=== PATIENT | female | born 1940 | race Caucasian/White ===

== ENCOUNTER 2016-12-02 16:50 | Inpatient (IN) | payer MEDICARE ==
[~2016-12-02] VITALS: Ht 167.6 cm; Wt 74.8 kg
[~2016-12-02 16:50] MED LIST: AMBIEN5 MG PO; AMOXICILLIN500 MG PO; DILTIAZEM HCL120 MG PO; ELIQUIS2.5 MG PO; K-DUR/KLOR-CON20 MEQ PO; LEVOTHYROXIN25 MC1 PO; NAPROSYN500 MG PO; ULTRAM50 M1 PO; ZOLPIDEM5 M1 PO
[2016-12-02] MEDS ORDERED: METO25TAB PO (17:15)
[2016-12-02] MEDS ORDERED: LOSARTAN POT50 MG PO (17:16)
[2016-12-02] MEDS ORDERED: LORTAB 7.57.5 MG PO (17:16)
[2016-12-02] MEDS ORDERED: CEPHALEXIN250 MG PO (17:17)
[2016-12-02 17:47] LABS: HEMATOCRIT 35.9 % (37.0-47.0); HEMOGLOBIN 11.6 g/dl (12.0-16.0); IMMATURE GRANULOCYTES 0.3 % (0.0-1.0); MEAN CELL VOLUME 99.7 fL CALC (80.0-100.0); MEAN CORPUSCULAR HGB 32.2 pG CALC (26.0-32.0); MEAN CORPUSCULAR HGB CONC 32.3 g/L CALC (32.0-36.0); NEUT# 7.1 thou/uL (2.00-7.15); RED BLOOD COUNT 3.6 mill/uL (4.20-5.60); RED CELL DISTRI WIDTH 15.8 % (11.5-15.5)
[2016-12-02 17:52] LABS: PROTHROMBIN TIME 11.1 SECONDS (9.0-12.5)
[2016-12-02 17:53] LABS: ALBUMIN 3.7 g/dL (3.2-5.0); ALKALINE PHOSPHATASE 106 u/l (38-126); AMYLASE 43 u/l (30-110); ANION GAP 14 (6-22 (CALC)); BILIRUBIN, TOTAL 0.6 mg/dL (0.0-1.4); BUN 13 mg/dL (8-23); BUN/CREATININE RATIO 19 (12-20 (CALC)); CALCIUM 9.2 mg/dL (8.4-10.2); CARBON DIOXIDE 28 mmol/l (22-30); CHLORIDE 101 mmol/l (95-108); CREATININE 0.7 mg/dL (0.5-1.0); GFR > 60 ML/MIN (>=60 (CALC)); GFR FOR AFR.AMER. > 60 ML/MIN (>=60 (CALC)); GLUCOSE 128 mg/dL (82-115); LIPASE 37 u/l (23-300); POTASSIUM 3.9 mmol/l (3.5-5.1); SGOT/AST 38 u/l (9-36); SGPT/ALT 34 u/l (11-66); SODIUM 139 mmol/l (137-146); TOTAL PROTEIN 7.5 g/dL (6.3-8.2)
[2016-12-02 18:05] LABS: MYOGLOBIN 40 ng/mL (0 - 62)
[2016-12-02 20:00] VITALS: BP 146/47
[2016-12-02 23:56] VITALS: BP 107/44
[2016-12-03 03:51] VITALS: BP 128/64
[2016-12-03 08:19] VITALS: BP 145/63
[2016-12-03 10:59] VITALS: BP 116/56
[2016-12-03 14:58] VITALS: BP 119/51
== END 2016-12-03 17:45 | disposition short-term general hospital (02) | DRG 300 ==
LOC: ED 16:50 → ED-I 18:06 → ED 18:06 → ED-I 18:18 → ED 18:53 → MS2 18:54
PROVIDERS: Emergency Medicine; ADMIT Internal Medicine; ATTEND Internal Medicine
DX: I82.412 Acute embolism and thrombosis of left femoral vein (principal); I48.1 Persistent atrial fibrillation; I11.9 Hypertensive heart disease without heart failure; M25.462 Effusion, left knee; G89.4 Chronic pain syndrome; M47.9 Spondylosis, unspecified; J45.909 Unspecified asthma, uncomplicated; E87.6 Hypokalemia; E03.9 Hypothyroidism, unspecified; E53.8 Deficiency of other specified B group vitamins; G47.00 Insomnia, unspecified; F32.9 Major depressive disorder, single episode, unspecified; Z91.14 Patient's other noncompliance with medication regimen; Z96.653 Presence of artificial knee joint, bilateral; Z98.84 Bariatric surgery status; Z79.899 Other long term (current) drug therapy; Z79.01 Long term (current) use of anticoagulants
CPT/HCPCS: J1650; Q9967

== ENCOUNTER 2020-01-31 16:29 | Observation (INO) | payer MEDICARE ==
[~2020-01-31] VITALS: Ht 152.4 cm; Wt 60.3 kg
[~2020-01-31 16:29] MED LIST changes: +CEPHALEXIN250 MG PO; +LOPRESSOR25 M1 PO; +LORTAB 7.57.5 MG PO; +LOSARTAN POT50 MG PO
--- NOTE | 2020-01-31 16:29 | NUR ---
PATIENT TO ROOM 10 FOR BEDSIDE TRIAGE AND PHYSICIAN AT BEDSIDE FOR EVAL
[2020-01-31 17:04] LABS: IMMATURE GRANULOCYTES 0.5 % (0.0-5.0); MEAN CORPUSCULAR HGB 20.4 pG CALC (26.0-32.0); MEAN CORPUSCULAR HGB CONC 29.2 g/dL CAL (32.0-36.0); NEUT# 5.12 thou/uL (2.00-7.15); RED BLOOD COUNT 4.01 mill/uL (4.20-5.60); RED CELL DISTRI WIDTH 21.2 % (11.5-15.5)
[2020-01-31 17:06] LABS: HEMATOCRIT 28.1 % (37.0-47.0); HEMOGLOBIN 8.2 g/dl (12.0-16.0); MEAN CELL VOLUME 70.1 fL CALC (80.0-100.0)
[2020-01-31 17:19] LABS: ALBUMIN 3.8 g/dL (3.2-5.0); ALKALINE PHOSPHATASE 84 u/l (38-126); AMYLASE 49 u/l (30-110); ANION GAP 11 (6-22 (CALC)); BILIRUBIN, TOTAL 0.6 mg/dL (0.0-1.4); BUN 21 mg/dL (8-23); BUN/CREATININE RATIO 32 (12-20 (CALC)); CARBON DIOXIDE 26 mmol/l (22-30); CHLORIDE 105 mmol/l (95-108); CREATININE 0.7 mg/dL (0.5-1.0); GFR > 60 ML/MIN (>=60 (CALC)); GFR FOR AFR.AMER. > 60 ML/MIN (>=60 (CALC)); LIPASE 41 u/l (23-300); MAGNESIUM 1.9 mg/dL (1.6-2.3); POTASSIUM 4.2 mmol/l (3.5-5.1); SGOT/AST 48 u/l (9-36); SODIUM 137 mmol/l (137-146); TOTAL PROTEIN 7.4 g/dL (6.3-8.2)
[2020-01-31 17:25] LABS: ACT PARTIAL THROMBO TIME 27.7 SECONDS (20.0-32.5); D-DIMER 0.57 mg/L (0.19-0.60); INTERNATIONAL NORMALIZED RATIO 1.1 RATIO (0.7-1.3); PROTHROMBIN TIME 11.6 SECONDS (9.0-12.5)
--- NOTE | 2020-01-31 17:30 | NUR ---
PATIENT RESTING AWAITING LAB AND RADIOLOGY RESULTS. PATIENT DENIES ANY PAIN OR DISCOMFORT AT THIS TIME
[2020-01-31 17:49] LABS: TSH, 3RD GENERATION 4.23 uIU/mL (0.47 - 4.68)
--- NOTE | 2020-01-31 18:30 | NUR ---
PATIENT RESTING AWAITNG LAB AND RADIOLOGY REAULTS. PATIENTDENIES ANY PAIN OR SOB AT THIS TIME. PATIENT DENIES ANY DIZZINESS AT THIS TIME
--- NOTE | 2020-01-31 18:59 | NUR ---
PATIENT RESTING AWAITNG ROOM ASSIGNMENT PATIENT DENIES ANY PAIN OR DISCOMFORT AT THIS TIME
--- NOTE | 2020-01-31 19:03 | NUR ---
REPORT GIVEN TO MAX TAO IN MED SURG
--- NOTE | 2020-01-31 19:27 | NUR ---
KEEP AREA CLEAN AND DRY WASH DAILY WITH SOAP AND WATER APPLY SILVADENE OINTMENT DAILY TAKE ANY PRESCRIBED MEDICATION DIRECTED PATIENT TRANSPORTED TO [facility]
[2020-01-31 19:30] VITALS: BP 142/65
--- NOTE | 2020-01-31 19:31 | NUR ---
RECEIVED REPORT FROM ED NURSE FLORINA PATIENT TRANSPORTED VIA BED, ACCOMPANIED BY DAUGHTER, PATIENT ORIENTED TO ROOM AND CALL LIGHT SYSTEM, BED ALARM IN PLACE.
--- NOTE | 2020-01-31 19:34 | NUR ---
MED RC REVIEWED BUT NOT COMPLETED. ADMITTING MD NOTIFIED AND HAD JUST SEEN PATIENT PRIOR TO ARRIVAL
--- NOTE | 2020-01-31 20:20 | NUR ---
PATIENT ALERT ORIENTED ABLE TO MAKE NEEDS KNONW, WITH SALINE LOCK ON RAC PATENT FLUSHES WELL, ADMISSION ASSESSMENT DONE, PATIENT COMFORTAMBLE RESTING IN BED CALL LIGHT AT REACH.
--- NOTE | 2020-01-31 20:53 | NUR ---
CALLED DR RUIZ ABOUT PATIENT REQUEST TO CONTINUE PAIN MEDICATION AND REQUEST FOR SLEEP AID.
[2020-01-31 23:52] LABS: URINE BILIRUBIN - DIPSTICK NEGATIVE (NEGATIVE); URINE BLOOD DIPSTICK NEGATIVE (NEGATIVE); URINE COLOR YELLOW; URINE GLUCOSE - DIPSTICK NEGATIVE (NEGATIVE); URINE KETONE TRACE mg/dL (NEGATIVE); URINE LEUK ESTERASE NEGATIVE (NEGATIVE); URINE NITRITE - DIPSTICK NEGATIVE (Negative); URINE PROTEIN - DIPSTICK NEGATIVE (NEG-TRACE); URINE SPECIFIC GRAVITY 1.025
[2020-02-01] VITALS (11 sets, daily range): BP systolic 124–165; BP diastolic 67–88
--- NOTE | 2020-02-01 00:22 | NUR ---
PATIENT RESTING IN BED EYES CLOSED, BREATHING EVEN AND UNLABORED CALL LIGHT AT REACH, BED ALARFM IN PLACE.
--- NOTE | 2020-02-01 04:44 | NUR ---
PATIENT RESTING IN BED WITH EYES CLOSED, BREATHING EVEN AND UNLABORED, NO DISCOMFORTS NOTED AT THIS TIME,CALL LIGHT AT REACH, BED ALARM IN PLACE.
--- NOTE | 2020-02-01 07:00 | NUR ---
REPORT RECEIVED FROM SHELLEY VICTORIA;PT RESTING IN SUPINE POSITION;RESPIRATIONS EVEN AND UNLABORED ON RA;PT DENIES ANY CURRENT PAIN OR NEEDS;TELE MONITORING IN PLACE;IV SITE PATENT;PT ENCOURAGED TO CALL FOR ASSISTANCE IF NEEDED;FALL PRECAUTIONS IN PLACE WITH BED IN THE LOWEST POSITION AND CALL LIGHT IN REACH;WILL CONTINUE TO MONITOR
--- NOTE | 2020-02-01 08:35 | NUR ---
PT RESTING IN SEMI FOWLERS POSITION,A&O X3;VS OBTAINED AND ASSESSMENT COMPLETED;PT DENIES ANY CURRENT PAIN BUT DOES REPORT NAUSEA, PAIN SCALE AND REPORTING EDUCATED;CELENA ANRP NOTIFIED OF NAUSEA AND NEW ORDERS RECEIVED;RESPIRATIONS EVEN AND UNLABORED ON RA,CLEAR LUNG SOUNDS;ABDOMEN SOFT ON PALPATION AND ACTIVE IN ALL4 QUADRANTS;STRONG PEDAL PULSES;SKIN INTACT;TELE MONITORING IN PLACE;#20G TO RAC FLUSHED AND PATENT,SITE APPEARS HEALTHY;PT ENCOURAGED TO CALL FOR ASSISTANCE IF NEEDED;FALL PRECAUTIONS IN PLACE WITH BED IN THE LOWEST POSITION AND CALL LIGHT IN REACH;WILL CONTINUE TO MONITOR
[2020-02-01 09:06] LABS: HEMATOCRIT 25.6 % (37.0-47.0); HEMOGLOBIN 7.5 g/dl (12.0-16.0); MEAN CELL VOLUME 69.9 fL CALC (80.0-100.0); MEAN CORPUSCULAR HGB 20.5 pG CALC (26.0-32.0); MEAN CORPUSCULAR HGB CONC 29.3 g/dL CAL (32.0-36.0); RED BLOOD COUNT 3.66 mill/uL (4.20-5.60); RED CELL DISTRI WIDTH 21.2 % (11.5-15.5)
[2020-02-01 09:47] LABS: ANION GAP 8 (6-22 (CALC)); BUN 15 mg/dL (8-23); BUN/CREATININE RATIO 30 (12-20 (CALC)); CARBON DIOXIDE 25 mmol/l (22-30); CHLORIDE 106 mmol/l (95-108); CREATININE 0.5 mg/dL (0.5-1.0); GFR > 60 ML/MIN (>=60 (CALC)); GFR FOR AFR.AMER. > 60 ML/MIN (>=60 (CALC)); POTASSIUM 4.2 mmol/l (3.5-5.1); SODIUM 135 mmol/l (137-146)
--- NOTE | 2020-02-01 10:35 | NUR ---
INFORMED CONSENT FOR PRBC'S OBTAINED AT THIS TIME BY SHELLEY REDDY. ALL RISKS AND BENEFITS DISCUSSED AND PT VERBALIZES UNDERSTANDING.
--- NOTE | 2020-02-01 11:07 | NUR ---
1ST UNIT OF PRBC'S STARTED AT THIS TIME BY BARRY AND VERIFIED BY THIS WRITTER;ALL S/S OF TRANSFUSION REACTIONS DISCUSSED WITH PT AND DAUGHTER AND PT VERBALIZES UNDERSTANDING;WILL CONTINUE TO MONITOR
--- NOTE | 2020-02-01 11:12 | NUR ---
CALLED DR. GARIBAY OFFICE REGARDING THIS PT FOR CONSULATION SPOKE TO JASSON AND STATED SHE WILL LET THE DOCTOR KNOW ABOUT THIS PT.
--- NOTE | 2020-02-01 11:22 | NUR ---
PT RESTING IN SEMI FOWLERS POSITION WITH DAUGHTER AT BEDSIDE;PT TOLERATING BLOOD TRANSFUSION WITH EASE AND DENIES ANY CURRENT PAIN OR NEEDS;RESPIRATIONS EVEN AND UNLABORED ON RA;ENCOURAGED TO CALL FOR ASSISTANCE IF NEEDED;CALL LIGHT IN REACH;WILL CONTINUE TO MONITOR
[2020-02-01] MEDS ORDERED: ELIQUIS2.5 MG PO (12:05)
[2020-02-01] MEDS ORDERED: SERTRALINE25 MG PO (12:08)
[2020-02-01] MEDS ORDERED: B121000 MCG PO (12:11)
[2020-02-01] MEDS ORDERED: D-MANNOSE500 MG PO (12:14)
[2020-02-01] MEDS ORDERED: CLARITIN10 M2 PO (12:24)
[2020-02-01] MEDS ORDERED: MAGNESIUM400 M1 PO (12:25)
[2020-02-01] MEDS ORDERED: MASTIC GUM PO (12:32)
--- NOTE | 2020-02-01 13:05 | NUR ---
PT REPORTS NAUSEA AND LOWER BACK PAIN RATING 10/10 ON THE PAIN SCALE, PT MEDICATED WITH PRN LORTAB 7.5MG PO AND ZOFRAN 4MG IVP PER ORDER;RESPIRATIONS REMAIN EVEN UNLABORED ON RA;BLOOD TRANSFUSION INFUSING TO RAC WITH EASE PER ORDER;TELE MONITORING IN PLACE;PT DENIES ANY ADDITIONAL NEEDS AT THIS TIME AND IS ENCOURAGED TO CALL FOR ASSISTANCE IF NEEDED;FALL PRECAUTIONS IN PLACE WITH CALL LIGHT IN REACH;WILL CONTINUE TO MONITOR
--- NOTE | 2020-02-01 15:06 | NUR ---
PT RESTING IN SEMI FOWLERS POSITION;RESPIRATIONS REMAIN EVEN AND UNLABORED ON RA;PT REPORTS THAT LOWER BACK PAIN HAS DECREASED SINCE PAIN MEDICATION ADMINISTRATION;IV SITE REMAINS PATENT AND BLOOD TRANSFUSION COMPLETED AT THIS TIME, PT TOLERATED WELL.TELE MONITORING IN PLACE;FRESH ICE PROVIDED PER REQUEST;PT DENIES ANY ADDITIONAL NEEDS AND IS ENCOURAGED TO CALL FOR ASSISTANCE IF NEEDED;CALL LIGHT IN REACH;WILL CONTINUE TO MONITOR
--- NOTE | 2020-02-01 15:50 | NUR ---
ORTHOSTATIC BP OBTAINED AT THIS TIME. SUPINE BP 165/78 HR 82. SITTING BP 162/75 HR 89. STANDING BP 163/91 HR 99.
--- NOTE | 2020-02-01 15:54 | NUR ---
RODRIGUEZ,ANRP AT BEDSIDE
--- NOTE | 2020-02-01 17:32 | NUR ---
PT MEDICATED WITH PRN TYLENOL 650MG PO PER REQUEST FOR LEFT FLANK PAIN RATING 7/10 ON THE PAIN SCALE,WILL CONTINUE TO MONITOR FOR EFFECTIVENESS.
--- NOTE | 2020-02-01 21:00 | NUR ---
PT RESTING IN BED, ALERT AND ORIENTED.RESPIRATIONS EVEN AND UNLABORED, LUNGS SOUND DIMINISHED. PEDAL PULSES WEAK. TELE IN PLACE. CALL LORD WITHIN REACH. WILL CONTINUE TO MONITOR.
--- NOTE | 2020-02-02 00:15 | NUR ---
PT RESTING IN BED WITH EYES CLOSED, RESPIRATIONS EVEN AND UNLABORED, NO S/S OF DISTRESS AT THIS TIME. SAFETY PRECAUTIONS IN PLACE. WILL CONTINUE TO MONITOR.
[2020-02-02 04:00] VITALS: BP 145/88
--- NOTE | 2020-02-02 04:16 | NUR ---
PT RESTING IN BED WITH EYES CLOSED, RESPIRATIONS EVEN AND UNLABORE, NO S/S OF DISTRESS AT THIS TIME. SAFETY PRECAUTIONS IN PLACE. WILL CONTINUE TO MONITOR.
--- NOTE | 2020-02-02 07:10 | NUR ---
REPORT RECEIVED FROM SHELLEY MARRERO;PT APPEARS TO BE SLEEPING IN SUPINE POSITION;NO S/S OF DISTRESS NOTED;RESPIRATIONS APPEAR EVEN AND UNLABORED ON RA;TELE MONITORING IN PLACE;ALL SAFETY PRECAUTIONS REMAIN IN PLACE WITH BED IN THE LOWEST POSITION AND CALL LIGHT IN REACH;WILL CONTINUE TO MONITOR
--- NOTE | 2020-02-02 08:25 | NUR ---
PT RESTING IN SEMI FOWLERS POSITION,A&O X3;VS OBTAINED AND ASSESSMENT COMPLETED;PT REPORTS LOWER BACK PAIN RATING 5/10 ON THE PAIN SCALE, PT MEDICATED WITH PRN LORTAB THIS MORNING AND IS RE-EDUCATED ON PAIN MEDICATION SCALE, PT VERBALIZES UNDERSTANDING;RESPIRATIONS EVEN AND UNLABORED ON RA,CLEAR LUNG SOUNDS;ABDOMEN SOFT ON PALPATION AND ACTIVE IN ALL 4 QUADRANTS;STRONG PEDAL PULSES;SKIN INTACT;TELE MONITORING IN PLACE;#20G TO RAC FLUSHED AND PATENT,SITE APPEARS HEALTHY;PT DENIES ANY ADDITIONAL NEEDS AT THIS TIME AND IS ENCOURAGED TO CALL FOR ASSISTANCE IF NEEDED;FALL PRECAUTIONS IN PLACE WITH BED IN THE LOWEST POSITION AND CALL LIGHT IN REACH;WILL CONTINUE TO MONITOR
[2020-02-02 08:27] VITALS: BP 119/75
[2020-02-02 09:11] LABS: MEAN CELL VOLUME 73.3 fL CALC (80.0-100.0); MEAN CORPUSCULAR HGB 22.1 pG CALC (26.0-32.0); MEAN CORPUSCULAR HGB CONC 30.1 g/dL CAL (32.0-36.0); RED BLOOD COUNT 4.35 mill/uL (4.20-5.60); RED CELL DISTRI WIDTH 22.7 % (11.5-15.5)
--- NOTE | 2020-02-02 09:30 | NUR ---
PT REPORTS NAUSEA AND REQUESTS PRN ANTIEMETIC, PT TO BE MEDICATED WITH PRN ZOFRAN 4MG IVP AT THIS TIME;WILL CONTINUE TO MONITOR FOR EFFECTIVENESS
[2020-02-02 09:31] LABS: HEMATOCRIT 31.9 % (37.0-47.0); HEMOGLOBIN 9.6 g/dl (12.0-16.0)
[2020-02-02 09:48] LABS: ANION GAP 7 (6-22 (CALC)); BUN 11 mg/dL (8-23); BUN/CREATININE RATIO 18 (12-20 (CALC)); CARBON DIOXIDE 28 mmol/l (22-30); CHLORIDE 104 mmol/l (95-108); CREATININE 0.6 mg/dL (0.5-1.0); GFR > 60 ML/MIN (>=60 (CALC)); GFR FOR AFR.AMER. > 60 ML/MIN (>=60 (CALC)); POTASSIUM 3.6 mmol/l (3.5-5.1); SODIUM 136 mmol/l (137-146)
--- NOTE | 2020-02-02 10:54 | NUR ---
AT BEDSIDE DISCUSSING POC WITH PT INCLUDING POSSIBLE D/C HOME.
[2020-02-02 11:13] VITALS: BP 152/86
--- NOTE | 2020-02-02 11:26 | NUR ---
PHYSICAL THERAPY AT BEDSIDE WORKING WITH PT AND AMBULATING DOWN THE LACY.
--- NOTE | 2020-02-02 11:40 | NUR ---
PT OOB RESTING IN RECLINER;RESPIRATIONS EVEN AND UNLABORED ON RA;PT DENIES ANY CURRENT PAIN OR NEEDS;TELE MONITORING IN PLACE;IV VENOFER STARTED AT THIS TIME PER ORDER,IV SITE PATENT;PT ENCOURAGED TO CALL FOR ASSISTANCE IF NEEDED;ASSESSMENT REMAINS UNCHANGED;CALL LIGHT IN REACH;WILL CONTINUE TO MONTIOR
[2020-02-02 15:36] VITALS: BP 154/98
--- NOTE | 2020-02-02 16:30 | NUR ---
PT RESTING IN SUPINE POSITION WITH DAUGHTER AT BEDSIDE;RESPIRATIONS EVEN AND UNLABORED ON RA;PT DENIES ANY CURRENT PAIN OR NEEDS;TELE MONITORING IN PLACE;IV SITE PATENT;ASSESSMENT REMAINS UNCHANGED AT THIS TIME;PT ENCOURAGED TO CALL FOR ASSISTANCE IF NEEDED;CALL LIGHT IN REACH;WILL CONTINUE TO MONITOR
[2020-02-02 19:00] VITALS: BP 137/76
--- NOTE | 2020-02-02 20:15 | NUR ---
PT RESTING IN BED, RESPIRATIONS EVEN AND UNLABORED ON RA, LUNGS SOUND CLEAR. PEDAL PULSES ARE STRONG. PT DENIES ANY PAIN OR DISCOMFORT AT THIS TIME. SAFETY PRECAUTIONSIN PLACE. WILL CONTINUE TO MONITOR.
[2020-02-02 23:36] VITALS: BP 132/78
--- NOTE | 2020-02-03 00:15 | NUR ---
PT RESTING IN BED RESPIRATIONS EVEN AND UNLABORED, NO S/S OF DISTRESS AT THIS TIME, WILL CONTINUE TO MONITOR.
--- NOTE | 2020-02-03 03:37 | NUR ---
PT RESTING IN BED NO S/S OF DISTRESS AT THIS TIME. SAFETY PRECAUTIONS IN PLACE.WILL CONTINUE TO MONITOR.
[2020-02-03 04:58] VITALS: BP 127/70
[2020-02-03 04:59] LABS: HEMATOCRIT 32.5 % (37.0-47.0); HEMOGLOBIN 9.3 g/dl (12.0-16.0)
[2020-02-03 08:45] VITALS: BP 151/54
--- NOTE | 2020-02-03 08:45 | NUR ---
ASSESSMENT IS COMPLETED: IV SITE IS FREE FROM REDNESS OR EDEMA. HR IS REG,PULSES ARE STRONG X4, ABD IS SOFT WITH ACTIVE BS. BREATH SOUNDS ARE CLEAR BILATERALLY. TELE MONITOR IN PLACE. CONTINUE TO OSTAMIR AND BENITOIOR.
--- NOTE | 2020-02-03 09:09 | NUR ---
PT note Attempted to perform Physcial therapy this moring but Miss Quintana stated she was not feeling well and was vomiting.
[2020-02-03] MEDS ORDERED: COZAAR25 MG PO (10:27)
[2020-02-03] MEDS ORDERED: FERR SULFATE325 MG PO ×2 (10:27)
[2020-02-03] MEDS ORDERED: PROTONIX40 MG PO ×2 (10:48)
[2020-02-03 11:59] VITALS: BP 157/93
--- NOTE | 2020-02-03 12:00 | NUR ---
PT IS SITTING IN BED WITH NO DISTRESS NOTED. IV SITE IS FREE FROM REDNESS OR EDEMA. CONTINUE TO OSBERVE AND MONITOR.
--- NOTE | 2020-02-03 13:45 | NUR ---
PT TRANSPORTED TO GO HOME WITH DAUGHTER AT BEDSIDE. INQUIRING ABOUT MEDICATIONS. IV SITE DISCONTINUED. CATHETER INTACT. DISCHARGE INSTRUCTIONS GIVEN AND VERBALIZED UNDERSTANDING.
--- NOTE | 2020-02-03 14:00 | NUR ---
Discharge instructions given. Patient verbalizes understanding of same. Discharged in stable condition via Wheelchair to Home with family. All belongings sent with pt.
--- NOTE | 2020-02-03 14:13 | NUR ---
RECEIVED A CALL FROM HER DAUGHTER RE: PRESCRIPTIONS. WILL UPDATE AND FAX THE PRESCRIPTIONS.
== END 2020-02-03 13:45 | disposition home or self-care (01) ==
LOC: ED 16:29 → ED-I 17:47 → ED 17:47 → MS2 17:55 → ED-I 17:55 → MS2 18:46
PROVIDERS: Internal Medicine; Nurse Practitioner Family; ADMIT Internal Medicine; ATTEND Internal Medicine
PROC: 30233N1 Transfusion of Nonautologous Red Blood Cells into Peripheral Vein, Percutaneous Approach (ICD-10-PCS; principal; 2020-02-01)
DX: D62 Acute posthemorrhagic anemia (principal); I48.20 Chronic atrial fibrillation, unspecified; I95.1 Orthostatic hypotension; R00.1 Bradycardia, unspecified; R19.5 Other fecal abnormalities; I10 Essential (primary) hypertension; E03.9 Hypothyroidism, unspecified; Z86.718 Personal history of other venous thrombosis and embolism; Z79.01 Long term (current) use of anticoagulants; Z20.828 Contact with and (suspected) exposure to other viral communicable diseases
CPT/HCPCS: G0378; J1756; P9016

== ENCOUNTER 2020-02-22 14:57 | Inpatient (IN) | payer MEDICARE, MEDICAID ==
[~2020-02-22] VITALS: Ht 167.6 cm; Wt 61.7 kg
[~2020-02-22 14:57] MED LIST changes: +B121000 MCG PO; +CLARITIN10 M2 PO; +COZAAR25 MG PO; +D-MANNOSE500 MG PO; +FERR SULFATE325 MG PO; +MAGNESIUM400 M1 PO; +MASTIC GUM PO; +PROTONIX40 MG PO; +SERTRALINE25 MG PO
--- NOTE | 2020-02-22 15:33 | NUR ---
CALLED DR. WILKERSON AT [phone] SPOKE TO HIM REGARDING THIS CONSULTATION.
[2020-02-22 16:19] VITALS: BP 157/80
--- NOTE | 2020-02-22 16:19 | NUR ---
PT ARRIVED TO MED SURG ROOM 279 IN STABLE CONDITION VIA WHEELCHAIR ACCOMPAINED BY DAUGHTER. PT IS A/O X3 AND A 1 ASSIST. PT AMBULATED FROM WHEELCHAIR TO BED WITH NO DIFFCULTIES, FALL RISK BAND APPLIED. ASSESSMENT AND VITALS COMPLETED AT THIS TIME. BP 157/80, HR 96, O2 98% ON ROOM AIR. REPSIRATIONS ARE EVEN AND UNLABRORED WITH NO SIGNS OF DISTRESS. LUNG SOUNDS ARE CLEAR. HEART RHYTHM IS NORMAL. BOWEL SOUNDS ARE ACTIVE IN ALL QUADRANTS, LAST MREPORTED BM 02/22/20. RADIAL AND PEDAL PULSES ARE STRONG WITH NORMAL CAPILLARY REFILL. SKIN IS WARM AND DRY WITH NO BREAK DOWN AND TRACE EDEMA TO BLE. #22G STARTED IN LFA BY SHELLEY KOLB, SITE APPEARS HEALTHY AND PATENT. PT DENIES ANY PAIN OR DISCOMFORTS AT THIS TIME. PT INFORMS WRITTER THAT SHE WAS AT DR TSANG OFFICE PRIOR TO BE ADMITTED. SHE INFORMED WRITTER THAT SHE HAS BEEN EXPERIENCING BLACK STOOLS AND BLACK VOMITTING WITH CRAMPS. PT INFORMS WRITTER THAT SHE HAS SENSITIVITY TO PERCOCET RESULTING IN NAUSEA, ALLERGY BAND APPLIED.PT DENIES ANY PAIN OR DISCOMFORTS AT THIS TIME. ALL SAFTEY PRECAUTIONS ARE IN PLACE WITH CALL LIGHT IN REACH, PT ORIENTED TO ROOM. WILL CONTINUE TO MONITOR
[2020-02-22 16:25] LABS: BASO% 1 % (0-3); EOS% 0 % (0-8); HEMATOCRIT 37.1 % (37.0-47.0); HEMOGLOBIN 11.2 g/dl (12.0-16.0); IMMATURE GRANULOCYTES 0.4 % (0.0-5.0); LYMPH% 31 % (15-41); MEAN CELL VOLUME 84.9 fL CALC (80.0-100.0); MEAN CORPUSCULAR HGB 25.6 pG CALC (26.0-32.0); MEAN CORPUSCULAR HGB CONC 30.2 g/dL CAL (32.0-36.0); MONO% 9 % (2-13); NEUT# 3.26 thou/uL (2.00-7.15); NEUT% 58 % (42-76); PLATELET COUNT 231 thou/uL (130-400); RED BLOOD COUNT 4.37 mill/uL (4.20-5.60)
[2020-02-22 16:38] LABS: ANION GAP 8 (6-22 (CALC)); BUN 17 mg/dL (8-23); BUN/CREATININE RATIO 29 (12-20 (CALC)); CARBON DIOXIDE 27 mmol/l (22-30); CHLORIDE 107 mmol/l (95-108); CREATININE 0.6 mg/dL (0.5-1.0); GFR > 60 ML/MIN (>=60 (CALC)); GFR FOR AFR.AMER. > 60 ML/MIN (>=60 (CALC)); POTASSIUM 4.1 mmol/l (3.5-5.1); SODIUM 137 mmol/l (137-146)
[2020-02-22] MEDS ORDERED: ONDANSETRON4 MG PO (17:15)
[2020-02-22] MEDS ORDERED: CALCIUM600 M1 PO (17:22)
[2020-02-22] MEDS ORDERED: VITAMIN D50000 UNIT PO (17:24)
[2020-02-22 18:20] LABS: URINE BILIRUBIN - DIPSTICK NEGATIVE (NEGATIVE); URINE BLOOD DIPSTICK NEGATIVE (NEGATIVE); URINE CLARITY CLEAR; URINE COLOR YELLOW; URINE GLUCOSE - DIPSTICK NEGATIVE (NEGATIVE); URINE KETONE NEGATIVE (NEGATIVE); URINE LEUK ESTERASE NEGATIVE (Negative); URINE NITRITE - DIPSTICK NEGATIVE (Negative); URINE PROTEIN - DIPSTICK NEGATIVE (NEG-TRACE); URINE SPECIFIC GRAVITY >=1.030; URINE UROBILINOGEN - DIPSTICK 0.2 E.U./dL (0.2)
--- NOTE | 2020-02-22 19:32 | NUR ---
REPORT FROM SHANIQUE ROSADO. PT NOTED RESTING IN BED. NO APPARENT DISTRESS NOTED. ALERT AND ORIENTED. PT C/O CHRONIC BACK PAIN, REQUESTING HOME PAIN MEDICATION. WILL NOTIFY PHYSICIAN FOR ORDERS. IV SITE APPEARS HEALTHY WITH IV FLUIDS INFUSING. PT REMAINS ON CLEAR LIQUID DIET. DISCUSSED POC. PT VERBALIZED UNDERSTANDING. NO OTHER WANTS OR NEEDS AT THIS TIME. CALL LIGHT WITHIN REACH. WILL CONTINUE TO MONITOR.
[2020-02-22 19:43] VITALS: BP 117/68
--- NOTE | 2020-02-22 23:45 | NUR ---
PT RESTING IN BED. NO APPARENT DISTRESS NOTED. RESPIRATIONS EVEN AND UNLABORED. CALL LIGHT WITHIN REACH. WILL CONTINUE TO MONITOR.
--- NOTE | 2020-02-23 03:37 | NUR ---
PT RESTING IN BED WITH EYES CLOSED. NO APPARENT DISTRESS NOTED. RESPIRATIONS EVEN AND UNLABORED. CALL LIGHT WITHIN REACH. WILL CONTINUE TO MONITOR.
[2020-02-23 03:45] VITALS: BP 152/80
[2020-02-23 05:19] LABS: BASO% 1 % (0-3); EOS% 2 % (0-8); HEMATOCRIT 33.5 % (37.0-47.0); LYMPH% 35 % (15-41); MEAN CELL VOLUME 84.6 fL CALC (80.0-100.0); MEAN CORPUSCULAR HGB 25.3 pG CALC (26.0-32.0); MEAN CORPUSCULAR HGB CONC 29.9 g/dL CAL (32.0-36.0); MONO% 13 % (2-13); NEUT# 2.08 thou/uL (2.00-7.15); NEUT% 49 % (42-76); PLATELET COUNT 198 thou/uL (130-400); RED BLOOD COUNT 3.96 mill/uL (4.20-5.60)
[2020-02-23 05:37] LABS: ALKALINE PHOSPHATASE 78 u/l (38-126); ANION GAP 5 (6-22 (CALC)); BILIRUBIN, TOTAL 0.6 mg/dL (0.0-1.4); BUN 14 mg/dL (8-23); BUN/CREATININE RATIO 26 (12-20 (CALC)); CARBON DIOXIDE 27 mmol/l (22-30); CHLORIDE 106 mmol/l (95-108); CREATININE 0.6 mg/dL (0.5-1.0); GFR > 60 ML/MIN (>=60 (CALC)); GFR FOR AFR.AMER. > 60 ML/MIN (>=60 (CALC)); POTASSIUM 4.1 mmol/l (3.5-5.1); SGOT/AST 24 u/l (9-36); SODIUM 134 mmol/l (137-146)
[2020-02-23 05:44] LABS: ALBUMIN 2.4 g/dL (3.2-5.0)
[2020-02-23 07:58] VITALS: BP 166/93
--- NOTE | 2020-02-23 10:54 | NUR ---
Reviewed patient's chart and findings incdicate that patient will benefit from PT and OT treatment. Order for PT/OT to evaluate and treat.
--- NOTE | 2020-02-23 12:02 | NUR ---
OR CONSENT OBTAINED
--- NOTE | 2020-02-23 13:58 | NUR ---
PT SITTING IN BED DAUGHTER AT BEDSIDE. NO NEEDS AT THIS TIME. CALL LIGHT IN REACH. CONTINUE TO MONITOR.
--- NOTE | 2020-02-23 14:46 | NUR ---
COVID RAPID SWAB OBTAINED, PT TOLERATED WELL.
[2020-02-23 15:10] VITALS: BP 136/78
--- NOTE | 2020-02-23 15:48 | NUR ---
REEMA GRAPHIC EDITOR AT BEDSIDE
--- NOTE | 2020-02-23 19:01 | NUR ---
REPORT FROM STELLA ROSADO. PT NOTED RESTING IN BED. NO APPARENT DISTRESS NOTED. ALERT AND ORIENTED. IV SITE APPEARS HEALTHY WITH IV FLUIDS INFUSING. PT FINISHING UP BOWEL PREP FOR SCHEDULED COLONOSCOPY/EGD TOMORROW MORNING. DISCUSSED POC AND NPO AFTER MIDNIGHT. PT VERBALIZED UNDERSTANDING. NO CURRENT WANTS OR NEEDS AT THIS TIME. CALL LIGHT WITHIN REACH. WILL CONTINUE TO MONITOR.
[2020-02-23 19:30] VITALS: BP 164/87
--- NOTE | 2020-02-23 23:23 | NUR ---
PT INCONTINENT OF WATERY STOOL. PERICARE PROVIDED AND LINENS CHANGED. PT REPOSITIONED FOR COMFORT. PT DENIES ANY PAIN OR DISCOMFORT. NO CURRENT WANTS OR NEEDS. CALL LIGHT WITHIN REACH. WILL CONTINUE TO MONITOR.
[2020-02-23 23:35] VITALS: BP 153/85
[2020-02-24] VITALS (11 sets, daily range): BP systolic 121–158; BP diastolic 53–110
--- NOTE | 2020-02-24 03:45 | NUR ---
PT RESTING IN BED. NO APPARENT DISTRESS NOTED. RESPIRATIONS EVEN AND UNLABORED. CALL LIGHT WITHIN REACH. WILL CONTINUE TO MONITOR.
[2020-02-24 04:22] LABS: HEMATOCRIT 36.9 % (37.0-47.0); HEMOGLOBIN 10.9 g/dl (12.0-16.0); MEAN CORPUSCULAR HGB 25.1 pG CALC (26.0-32.0); MEAN CORPUSCULAR HGB CONC 29.5 g/dL CAL (32.0-36.0); RED BLOOD COUNT 4.34 mill/uL (4.20-5.60)
[2020-02-24 04:29] LABS: RED CELL DISTRI WIDTH 33.3 % (11.5-15.5)
[2020-02-24 04:56] LABS: ANION GAP 6 (6-22 (CALC)); BUN 8 mg/dL (8-23); BUN/CREATININE RATIO 14 (12-20 (CALC)); CARBON DIOXIDE 29 mmol/l (22-30); CHLORIDE 103 mmol/l (95-108); CREATININE 0.6 mg/dL (0.5-1.0); GFR > 60 ML/MIN (>=60 (CALC)); GFR FOR AFR.AMER. > 60 ML/MIN (>=60 (CALC)); POTASSIUM 4.4 mmol/l (3.5-5.1); SODIUM 132 mmol/l (137-146)
--- NOTE | 2020-02-24 06:32 | NUR ---
PER OR STAFF HOLD 0600 AM MEDICATIONS FOR PROCEDURE.
--- NOTE | 2020-02-24 06:40 | NUR ---
PT LEFT FLOOR VIA STRETCHER ACCOMPAINED BY OR STAFF. PT DEPARTED IN STABLE CONDITION.
--- NOTE | 2020-02-24 07:37 | NUR ---
PT CURRENTLY DOWN IN OR
--- NOTE | 2020-02-24 08:43 | NUR ---
PT ARRIVED VIA STRETCHER FROM OR. A&O X3. PT IN STABLE CONDITION. DAUGHTER AT BEDSIDE. NO DISTRESS NOTED. PT C/O OF LOWER BACK PAIN. NO OTHER NEEDS FROM PT AT THIS TIME. DISCUSSED DIET ADVANCEMENT, WILL MONITOR FOR TOLERATION. ASSESSMENT COMPLETED. DISCUSSED POC. CALL LIGHT IN REACH. CONTINUE TO MONITOR.
--- NOTE | 2020-02-24 12:14 | NUR ---
PT SITTING IN BED ATTEMPTING TO EAT LUNCH. NO DISTRESS OR NEEDS AT THIS TIME. CALL LIGHT IN REACH. CONTINUE TO MONITOR.
--- NOTE | 2020-02-24 12:29 | NUR ---
PT ABLE TO TOLERATE 50% OF MEAL, PER PT SHE FELT NAUSEOUS AFTER.
--- NOTE | 2020-02-24 14:14 | NUR ---
Pt unable to participate in physical therapy due to nausea and vomiting. Pt reports she will hopefully be able to participate tomorrow.
--- NOTE | 2020-02-24 19:05 | NUR ---
REPORT FROM STELLA ROSADO. PT NOTED RESTING IN BED. NO APPARENT DISTRESS NOTED. ALERT AND ORIENTED. IV SITE APPEARS HEALTHY WITH IV FLUIDS INFUSING. PT DENIES ANY PAIN OR DISCOMFORT. DISCUSSED POC. PT VERBALIZED UNDERSTANDING. NO CURRENT WANTS OR NEEDS AT THIS TIME. CALL LIGHT WITHIN REACH. WILL CONTINUE TO MONITOR.
--- NOTE | 2020-02-24 23:45 | NUR ---
PT RESTING IN BED WITH EYES CLOSED. NO APPARENT DISTRESS NOTED. RESPIRATIONS EVEN AND UNLABORED. CALL LIGHT WITHIN REACH. WILL CONTINUE TO MONITOR.
--- NOTE | 2020-02-25 01:21 | NUR ---
PT RESTING IN BED WITH EYES CLOSED. NO APPARENT DISTRESS NOTED. RESPIRATIONS EVEN AND UNLABORED. CALL LIGHT WITHIN REACH. WILL CONTINUE TO MONITOR.
--- NOTE | 2020-02-25 03:44 | NUR ---
PT RESTING IN BED WITH EYES CLOSED. NO APPARENT DISTRESS NOTED. RESPIRATIONS EVEN AND UNLABORED. CALL LIGHT WITHIN REACH. WILL CONTINUE TO MONITOR.
[2020-02-25 04:05] VITALS: BP 139/77
[2020-02-25 07:20] VITALS: BP 133/84
--- NOTE | 2020-02-25 07:22 | NUR ---
PT SLEEPING IN BED. AWAKENED TO COMPLETE ASSESSMENT. A&O X3. PT REPORTS TO BE FEELING WELL THIS MORNING. NO DISTRESS OR NEEDS AT THIS TIME. ASSESSMENT COMPLETED. DISCUSSED POC. CALL LIGHT IN REACH. CONTINUE TO MONITOR.
[2020-02-25 08:30] VITALS: BP 133/84
[2020-02-25 08:51] LABS: BASO% 1 % (0-3); EOS% 2 % (0-8); HEMATOCRIT 37.8 % (37.0-47.0); IMMATURE GRANULOCYTES 0.3 % (0.0-5.0); LYMPH% 36 % (15-41); MEAN CELL VOLUME 86.9 fL CALC (80.0-100.0); MEAN CORPUSCULAR HGB 25.3 pG CALC (26.0-32.0); MEAN CORPUSCULAR HGB CONC 29.1 g/dL CAL (32.0-36.0); MONO% 11 % (2-13); NEUT# 1.86 thou/uL (2.00-7.15); NEUT% 50 % (42-76); PLATELET COUNT 171 thou/uL (130-400); RED BLOOD COUNT 4.35 mill/uL (4.20-5.60)
[2020-02-25 09:10] LABS: ALBUMIN 2.4 g/dL (3.2-5.0); ALKALINE PHOSPHATASE 74 u/l (38-126); ANION GAP 7 (6-22 (CALC)); BILIRUBIN, TOTAL 0.6 mg/dL (0.0-1.4); BUN 7 mg/dL (8-23); BUN/CREATININE RATIO 11 (12-20 (CALC)); CHLORIDE 107 mmol/l (95-108); CREATININE 0.6 mg/dL (0.5-1.0); GFR > 60 ML/MIN (>=60 (CALC)); GFR FOR AFR.AMER. > 60 ML/MIN (>=60 (CALC)); POTASSIUM 4.1 mmol/l (3.5-5.1); SGOT/AST 27 u/l (9-36); SODIUM 133 mmol/l (137-146); TOTAL PROTEIN 5.2 g/dL (6.3-8.2)
[2020-02-25 09:12] LABS: CARBON DIOXIDE 23 mmol/l (22-30)
[2020-02-25] MEDS ORDERED: PROTONIX40 MG PO (11:53)
--- NOTE | 2020-02-25 14:22 | NUR ---
Discharge instructions given. Patient and daughter verbalize understanding of same. Discharged in stable condition via wheelchair accompanied by this nurse and daughter . All belongings sent with pt.
== END 2020-02-25 14:22 | disposition home or self-care (01) | DRG 378 ==
LOC: MS2 14:57
PROVIDERS: Nurse Practitioner; ADMIT Internal Medicine; ATTEND Internal Medicine
PROC: 0DJ08ZZ Inspection of Upper Intestinal Tract, Via Natural or Artificial Opening Endoscopic (ICD-10-PCS; principal; 2020-02-24)
PROC: 0DJD8ZZ Inspection of Lower Intestinal Tract, Via Natural or Artificial Opening Endoscopic (ICD-10-PCS; 2020-02-24)
DX: K28.4 Chronic or unspecified gastrojejunal ulcer with hemorrhage (principal); I48.20 Chronic atrial fibrillation, unspecified; D50.0 Iron deficiency anemia secondary to blood loss (chronic); I10 Essential (primary) hypertension; J45.909 Unspecified asthma, uncomplicated; K44.9 Diaphragmatic hernia without obstruction or gangrene; K64.8 Other hemorrhoids; K57.30 Diverticulosis of large intestine without perforation or abscess without bleeding; E03.9 Hypothyroidism, unspecified; E53.9 Vitamin B deficiency, unspecified; G89.29 Other chronic pain; M54.9 Dorsalgia, unspecified; F32.9 Major depressive disorder, single episode, unspecified; M19.90 Unspecified osteoarthritis, unspecified site; Z98.84 Bariatric surgery status; Z79.01 Long term (current) use of anticoagulants; Z86.718 Personal history of other venous thrombosis and embolism
CPT/HCPCS: S0164

== ENCOUNTER 2020-06-21 10:47 | Day surgery (SDC) | payer MEDICARE, MEDICAID ==
[~2020-06-21 10:47] MED LIST changes: +CALCIUM600 M1 PO; +FUROSEMIDE20 MG PO; +ONDANSETRON4 MG PO; +VITAMIN D350000 UNIT PO; +VITAMIN D50000 UNIT PO
[2020-06-21 14:33] VITALS: BP 147/65
== END 2020-06-21 14:40 | disposition home or self-care (01) ==
LOC: ORM 10:47
PROVIDERS: ATTEND Surgery
PROC: 0D778ZZ Dilation of Stomach, Pylorus, Via Natural or Artificial Opening Endoscopic (ICD-10-PCS; principal; 2020-06-21)
PROC: 0DB78ZX Excision of Stomach, Pylorus, Via Natural or Artificial Opening Endoscopic, Diagnostic (ICD-10-PCS; 2020-06-21)
DX: K95.89 Other complications of other bariatric procedure (principal); K29.50 Unspecified chronic gastritis without bleeding; K26.9 Duodenal ulcer, unspecified as acute or chronic, without hemorrhage or perforation; I10 Essential (primary) hypertension; B96.81 Helicobacter pylori [H. pylori] as the cause of diseases classified elsewhere; I48.91 Unspecified atrial fibrillation; Z98.84 Bariatric surgery status; Y84.8 Other medical procedures as the cause of abnormal reaction of the patient, or of later complication, without mention of misadventure at the time of the procedure; Z20.828 Contact with and (suspected) exposure to other viral communicable diseases

== ENCOUNTER 2023-03-04 17:05 | Inpatient (IN) | payer MEDICARE, MEDICAID ==
[~2023-03-04] VITALS: Ht 167.6 cm; Wt 58.1 kg
[~2023-03-04 17:05] MED LIST changes: +PREDNISONE10 MG PO
[2023-03-04 18:05] VITALS: BP 135/72
[2023-03-04] MEDS ORDERED: PROTONIX40 M2 PO (18:13)
[2023-03-04] MEDS ORDERED: COZAAR25 MG PO (18:14)
[2023-03-04] MEDS ORDERED: GABAPENTIN100 MG PO (18:14)
[2023-03-04 19:51] VITALS: BP 148/75
[2023-03-04 20:12] LABS: BASO% 0.2 % (0-3); EOS% 0.1 % (0-8); HEMATOCRIT 37.7 % (37.0-47.0); HEMOGLOBIN 11.9 g/dl (12.0-16.0); IMMATURE GRANULOCYTES 0.8 % (0.0-5.0); LYMPH% 14.7 % (15-41); MEAN CORPUSCULAR HGB 32.7 pG CALC (26.0-32.0); MEAN CORPUSCULAR HGB CONC 31.6 g/dL CAL (32.0-36.0); MONO% 7.6 % (2-13); NEUT# 6.54 thou/uL (2.00-7.15); NEUT% 76.6 % (42-76); RED BLOOD COUNT 3.64 mill/uL (4.20-5.60); RED CELL DISTRI WIDTH 15.8 % (11.5-15.5)
[2023-03-04 20:15] LABS: MEAN CELL VOLUME 103.6 fL CALC (80.0-100.0)
[2023-03-04 20:26] LABS: BILIRUBIN, TOTAL 0.6 mg/dL (0.02-1.3); BUN 19 mg/dL (8-23); BUN/CREATININE RATIO 25 (12-20 (CALC)); CHLORIDE 102 mmol/l (95-108); CREATININE 0.7 mg/dL (0.5-1.0); GFR FOR AFR.AMER. > 60 ML/MIN (>=60 (CALC)); GFR OTHER RACES > 60 ML/MIN (>=60 (CALC)); POTASSIUM 4.6 mmol/l (3.5-5.1); SGOT/AST 30 u/l (9-36); SODIUM 139 mmol/l (137-146); TOTAL PROTEIN 6.1 g/dL (6.3-8.2)
[2023-03-04 20:30] LABS: ALKALINE PHOSPHATASE 123 u/l (38-126); ANION GAP 10 (6-22 (CALC)); CARBON DIOXIDE 32 mmol/l (22-30)
[2023-03-05 04:23] VITALS: BP 144/72
[2023-03-05 05:48] LABS: BASO% 0.5 % (0-3); EOS% 0.9 % (0-8); HEMATOCRIT 35.2 % (37.0-47.0); HEMOGLOBIN 11.1 g/dl (12.0-16.0); IMMATURE GRANULOCYTES 0.5 % (0.0-5.0); LYMPH% 22.4 % (15-41); MEAN CELL VOLUME 103.2 fL CALC (80.0-100.0); MEAN CORPUSCULAR HGB 32.6 pG CALC (26.0-32.0); MEAN CORPUSCULAR HGB CONC 31.5 g/dL CAL (32.0-36.0); MONO% 10.9 % (2-13); NEUT# 4.84 thou/uL (2.00-7.15); NEUT% 64.8 % (42-76); RED BLOOD COUNT 3.41 mill/uL (4.20-5.60); RED CELL DISTRI WIDTH 15.6 % (11.5-15.5)
[2023-03-05 05:59] LABS: ALBUMIN 2.7 g/dL (3.2-5.0); ALKALINE PHOSPHATASE 99 u/l (38-126); ANION GAP 7 (6-22 (CALC)); BILIRUBIN, TOTAL 0.6 mg/dL (0.02-1.3); BUN 19 mg/dL (8-23); BUN/CREATININE RATIO 31 (12-20 (CALC)); CARBON DIOXIDE 32 mmol/l (22-30); CHLORIDE 103 mmol/l (95-108); CREATININE 0.6 mg/dL (0.5-1.0); GFR FOR AFR.AMER. > 60 ML/MIN (>=60 (CALC)); GFR OTHER RACES > 60 ML/MIN (>=60 (CALC)); MAGNESIUM 1.8 mg/dL (1.6-2.3); POTASSIUM 4.5 mmol/l (3.5-5.1); SGOT/AST 28 u/l (9-36); SODIUM 137 mmol/l (137-146); TOTAL PROTEIN 5.5 g/dL (6.3-8.2)
[2023-03-05 06:45] VITALS: BP 147/75
[2023-03-05] MEDS ORDERED: MAGNESIUM 400 M1 TAB PO (11:08)
[2023-03-05] MEDS ORDERED: VITAMIN D1000 UNIT PO (11:08)
[2023-03-05] MEDS ORDERED: CYMBALTA30 MG PO (11:21)
[2023-03-05 14:18] LABS: URINE BILIRUBIN - DIPSTICK NEGATIVE (NEGATIVE); URINE COLOR YELLOW; URINE GLUCOSE - DIPSTICK NEGATIVE (NEGATIVE); URINE KETONE Negative (NEGATIVE); URINE PROTEIN - DIPSTICK NEGATIVE (NEG-TRACE)
[2023-03-05 14:19] LABS: URINE BLOOD DIPSTICK NEGATIVE (NEGATIVE); URINE LEUK ESTERASE TRACE (NEGATIVE); URINE NITRITE - DIPSTICK NEGATIVE (Negative)
[2023-03-05 18:45] VITALS: BP 148/81
[2023-03-05 19:00] VITALS: BP 148/81
[2023-03-06] VITALS (7 sets, daily range): BP systolic 134–174; BP diastolic 68–90
[2023-03-06 05:58] LABS: BASO% 0.3 % (0-3); EOS% 0.6 % (0-8); HEMATOCRIT 35.8 % (37.0-47.0); HEMOGLOBIN 11.4 g/dl (12.0-16.0); IMMATURE GRANULOCYTES 0.5 % (0.0-5.0); MEAN CELL VOLUME 102.9 fL CALC (80.0-100.0); MEAN CORPUSCULAR HGB 32.8 pG CALC (26.0-32.0); MEAN CORPUSCULAR HGB CONC 31.8 g/dL CAL (32.0-36.0); MONO% 9.5 % (2-13); NEUT# 5.32 thou/uL (2.00-7.15); NEUT% 69.1 % (42-76); RED BLOOD COUNT 3.48 mill/uL (4.20-5.60); RED CELL DISTRI WIDTH 15.6 % (11.5-15.5)
[2023-03-06 06:29] LABS: ALKALINE PHOSPHATASE 103 u/l (38-126); ANION GAP 7 (6-22 (CALC)); BILIRUBIN, TOTAL 0.7 mg/dL (0.02-1.3); BUN 15 mg/dL (8-23); BUN/CREATININE RATIO 22 (12-20 (CALC)); CARBON DIOXIDE 33 mmol/l (22-30); CHLORIDE 101 mmol/l (95-108); CREATININE 0.7 mg/dL (0.5-1.0); GFR FOR AFR.AMER. > 60 ML/MIN (>=60 (CALC)); GFR OTHER RACES > 60 ML/MIN (>=60 (CALC)); POTASSIUM 4.2 mmol/l (3.5-5.1); SGOT/AST 28 u/l (9-36); SODIUM 137 mmol/l (137-146); TOTAL PROTEIN 6.2 g/dL (6.3-8.2)
== END 2023-03-06 17:47 | disposition home or self-care (01) | DRG 392 ==
LOC: MS2 17:05
PROVIDERS: Nurse Practitioner Family; ADMIT Student in an Organized Health Care Education/Training Program; ATTEND Student in an Organized Health Care Education/Training Program
DX: R11.2 Nausea with vomiting, unspecified (principal); R13.10 Dysphagia, unspecified; I10 Essential (primary) hypertension; I48.91 Unspecified atrial fibrillation; E03.9 Hypothyroidism, unspecified; J45.909 Unspecified asthma, uncomplicated; M54.9 Dorsalgia, unspecified; G89.29 Other chronic pain; F32.A Depression, unspecified; Z86.718 Personal history of other venous thrombosis and embolism; Z79.01 Long term (current) use of anticoagulants; Z98.84 Bariatric surgery status; Z87.19 Personal history of other diseases of the digestive system
CPT/HCPCS: S0164

== ENCOUNTER 2023-03-24 07:47 | Day surgery (SDC) | payer MEDICARE, MEDICAID ==
[~2023-03-24] VITALS: Ht 167.6 cm; Wt 59.9 kg
[~2023-03-24 07:47] MED LIST changes: +CYMBALTA30 MG PO; +GABAPENTIN100 MG PO; +MAGNESIUM 400 M1 TAB PO; +PROTONIX40 M2 PO; +VITAMIN D1000 UNIT PO
[2023-03-24 09:57] VITALS: BP 157/88
== END 2023-03-24 09:55 | disposition home or self-care (01) ==
LOC: ORM 07:47
PROVIDERS: ATTEND Surgery
PROC: 0DB48ZX Excision of Esophagogastric Junction, Via Natural or Artificial Opening Endoscopic, Diagnostic (ICD-10-PCS; principal; 2023-03-24)
PROC: 0DB68ZX Excision of Stomach, Via Natural or Artificial Opening Endoscopic, Diagnostic (ICD-10-PCS; 2023-03-24)
PROC: 0D768ZZ Dilation of Stomach, Via Natural or Artificial Opening Endoscopic (ICD-10-PCS; 2023-03-24)
PROC: 0D7A8ZZ Dilation of Jejunum, Via Natural or Artificial Opening Endoscopic (ICD-10-PCS; 2023-03-24)
DX: K95.89 Other complications of other bariatric procedure (principal); K31.9 Disease of stomach and duodenum, unspecified; K29.50 Unspecified chronic gastritis without bleeding; K44.9 Diaphragmatic hernia without obstruction or gangrene; I48.91 Unspecified atrial fibrillation; Z79.01 Long term (current) use of anticoagulants; E03.9 Hypothyroidism, unspecified; J45.909 Unspecified asthma, uncomplicated; M54.9 Dorsalgia, unspecified; G89.29 Other chronic pain; I10 Essential (primary) hypertension; Z86.718 Personal history of other venous thrombosis and embolism; Z98.84 Bariatric surgery status; Y83.2 Surgical operation with anastomosis, bypass or graft as the cause of abnormal reaction of the patient, or of later complication, without mention of misadventure at the time of the procedure

== ENCOUNTER 2023-04-13 17:01 | Emergency (ER) | payer MEDICARE, MEDICAID ==
[2023-04-13] VITALS (7 sets, daily range): BP systolic 149–184; BP diastolic 77–102
[~2023-04-13] VITALS: Ht 167.6 cm; Wt 59.4 kg
[2023-04-13 17:42] LABS: EOS% 1.2 % (0-8); HEMATOCRIT 38.1 % (37.0-47.0); HEMOGLOBIN 12.2 g/dl (12.0-16.0); IMMATURE GRANULOCYTES 0.4 % (0.0-5.0); LYMPH% 36.9 % (15-41); MEAN CELL VOLUME 103.8 fL CALC (80.0-100.0); MEAN CORPUSCULAR HGB 33.2 pG CALC (26.0-32.0); MONO% 12.8 % (2-13); NEUT# 2.47 thou/uL (2.00-7.15); NEUT% 47.7 % (42-76); RED BLOOD COUNT 3.67 mill/uL (4.20-5.60); RED CELL DISTRI WIDTH 15.7 % (11.5-15.5)
[2023-04-13 17:46] LABS: URINE BILIRUBIN - DIPSTICK Negative (NEGATIVE); URINE BLOOD DIPSTICK Large (NEGATIVE); URINE GLUCOSE - DIPSTICK Negative (NEGATIVE); URINE KETONE Trace mg/dL (NEGATIVE); URINE LEUK ESTERASE Trace (NEGATIVE); URINE NITRITE - DIPSTICK Negative (Negative); URINE PROTEIN - DIPSTICK 100 mg/dL (NEG-TRACE); URINE SPECIFIC GRAVITY 1.025; URINE UROBILINOGEN - DIPSTICK >=8.0 E.U./dL (0.2)
[2023-04-13 17:48] LABS: URINE COLOR Yellow
[2023-04-13 17:53] LABS: ALBUMIN 3.2 g/dL (3.2-5.0); ALKALINE PHOSPHATASE 120 u/l (38-126); ANION GAP 8 (6-22 (CALC)); BILIRUBIN, TOTAL 0.9 mg/dL (0.02-1.3); BUN 20 mg/dL (8-23); BUN/CREATININE RATIO 23 (12-20 (CALC)); CARBON DIOXIDE 37 mmol/l (22-30); CHLORIDE 99 mmol/l (95-108); CREATININE 0.9 mg/dL (0.5-1.0); GFR FOR AFR.AMER. > 60 ML/MIN (>=60 (CALC)); GFR OTHER RACES 60 ML/MIN (>=60 (CALC)); LIPASE 32 u/l (23-300); SGOT/AST 29 u/l (9-36); SODIUM 141 mmol/l (137-146); TOTAL PROTEIN 6.6 g/dL (6.3-8.2)
[2023-04-13 17:53] LABS: URINE RBC 50-100 RBC/hpf (0-5)
[2023-04-13 17:54] LABS: URINE SQUAMOUS EPITHELIAL CELL FEW EPI/hpf (0-FEW)
[2023-04-13 17:56] LABS: POTASSIUM 3.1 mmol/l (3.5-5.1)
[2023-04-13] MEDS ORDERED: LASIX 20 MG TAB20 MG PO (18:33)
[2023-04-13] MEDS ORDERED: CLARITIN10 M1 PO (18:36)
[2023-04-13] MEDS ORDERED: ZOLPIDEM5 M1 PO (18:36)
== END 2023-04-13 20:49 | disposition home or self-care (01) ==
LOC: ED 17:01
PROVIDERS: Nurse Practitioner
DX: N20.0 Calculus of kidney (principal); I10 Essential (primary) hypertension; I48.91 Unspecified atrial fibrillation; E03.9 Hypothyroidism, unspecified; Z87.442 Personal history of urinary calculi